=== PATIENT | female | born 1980 | race Two or more races ===

== ENCOUNTER 2023-11-05 08:11 | Emergency (ER) | payer OTHER ==
[~2023-11-05] VITALS: Ht 167.6 cm; Wt 65.8 kg
[2023-11-05] MEDS ORDERED: MONTELUKAST SODI4 M1 (08:18)
[2023-11-05] MEDS ORDERED: ZOLOFT50 MG PO (08:19)
[2023-11-05] MEDS ORDERED: ALLERGY RELIE15.8 ML ×2 (08:19→08:20)
[2023-11-05] MEDS ORDERED: XYZAL5 MG (08:19)
[2023-11-05] MEDS ORDERED: PROAIR RESPICL90 MCG (08:19)
[2023-11-05 09:39] LABS: HEMATOCRIT 32.7 % (36.0-45.00); HEMOGLOBIN 10.8 g/dL (12.0-15.00); MEAN CELL VOLUME 91.5 fL (80.00-100.00); MEAN CORPUSCULAR HEMOGLOBIN 30.4 pg (27.00-32.0); MEAN CORPUSCULAR HGB CONC 33.2 g/dl (32.0-36.0); PLATELET COUNT 217 K/uL (150-450); RED BLOOD COUNT 3.57 M/uL (4.00-6.00); RED CELL DISTRIBUTION WIDTH 14.3 % (11.5-14.5)
[2023-11-05 09:44] LABS: PH,URINE 6.5 (5.0-8.0); URINE APPEARANCE Clear; URINE BILIRRUBIN Negative (NEGATIVE); URINE BLOOD Large; URINE COLOR Yellow; URINE GLUCOSE Negative (NEGATIVE); URINE LEUKOCYTE Negative; URINE NITRATE Negative; URINE PROTEIN Negative (NEGATIVE); URINE UROBILINOGEN 0.2 E.U./dl
[2023-11-05 09:49] LABS: URINE BACTERIA 66.7 uL (0.0-1933); URINE EPITHELIAL CELLS 2.6 uL (0.0-38.8); URINE RBC 398.7 uL (0.0-20.8)
[2023-11-05 09:52] LABS: URINE WBC 1.5 uL (0.0-23.2)
[2023-11-05 09:54] LABS: INR 1.04; PARTIAL THROMBOPLASTIN TIME 24.8 SECONDS (22.0-34.0); PROTHROMBIN TIME 10.9 SECONDS (9.0-11.5)
[2023-11-05 10:28] LABS: ANION GAP 9 (10.0-20.0); BLOOD UREA NITROGEN 19 mg/dL (7-18); BUN CREA RATIO 23 (7.0-25.0); CALCIUM 8.6 mg/dL (8.5-10.1); CARBON DIOXIDE 28 mEq/L (21-32); CHLORIDE 106 mmol/L (98-107); CREATININE SERUM 0.83 mg/dL (0.55-1.02); GFR 74.68; GLUCOSE FASTING 83 mg/dL (65-100); OSMOLALITY SERUM 279 MOSM/KG (275-295); POTASSIUM 3.96 mEq/L (3.5-5.1); SODIUM 139 mmol/L (136-145)
[2023-11-05 10:29] LABS: HCG QUANTITATIVE < 1 mUI/mL (1-3)
== END 2023-11-05 11:28 | disposition home or self-care (01) ==
LOC: ER 08:12
PROVIDERS: General Practice
DX: N93.8 Other specified abnormal uterine and vaginal bleeding (principal); Z88.6 Allergy status to analgesic agent

== ENCOUNTER 2023-12-03 17:11 | Emergency (ER) | payer OTHER ==
[~2023-12-03] VITALS: Ht 167.6 cm; Wt 70.8 kg
[~2023-12-03 17:11] MED LIST: ALLERGY RELIE15.8 ML; MONTELUKAST SODI4 M1; PROAIR RESPICL90 MCG; XYZAL5 MG; ZOLOFT50 MG PO
[2023-12-03 20:04] LABS: HEMATOCRIT 32.3 % (36.0-45.00); HEMOGLOBIN 10.7 g/dL (12.0-15.00); MEAN CORPUSCULAR HEMOGLOBIN 30.1 pg (27.00-32.0); MEAN CORPUSCULAR HGB CONC 33.1 g/dl (32.0-36.0); PLATELET COUNT 217 K/uL (150-450); RED BLOOD COUNT 3.55 M/uL (4.00-6.00); RED CELL DISTRIBUTION WIDTH 14.5 % (11.5-14.5)
[2023-12-03] MEDS ORDERED: BENZONATATE100 MG PO (21:01)
[2023-12-03] MEDS ORDERED: BUDESONIDE0.5 MG/2 M IH (21:01)
== END 2023-12-03 21:09 | disposition home or self-care (01) ==
LOC: ER 17:12
PROVIDERS: Nurse Practitioner Family
DX: R53.81 Other malaise (principal); J45.909 Unspecified asthma, uncomplicated; Z20.822 Contact with and (suspected) exposure to COVID-19; Z88.6 Allergy status to analgesic agent; Z91.013 Allergy to seafood